=== PATIENT | male | born 1990 | race Caucasian/White ===

== ENCOUNTER 2016-11-10 22:54 | Inpatient (IN) | payer MEDICAID, OTHER ==
[~2016-11-10 22:54] MED LIST: fentaNYL 100 MCG/2 ML INJ IVP ONE
[2016-11-10] MEDS ORDERED: ONDANSETRON 4 MG/2 ML VIAL ONE (23:04)
[2016-11-10] MEDS ORDERED: PANTOPRAZOLE SODIUM 40 MG VIAL ONE (23:05)
[2016-11-10] MEDS ORDERED: CEFAZOLIN 2 GM/DEXTROSE/100 ML BAG IV ONE (23:05)
[2016-11-10] MEDS ORDERED: NS 1,000 ML IV ONE ×2 (23:06→23:31)
[2016-11-10 23:10] LABS: % IMMATURE GRANULYOCYTES 1.7 % (0.0-1.1); ABSOLUTE IMMATURE GRANULOCYTES 0.17 10^3/uL (0.00-0.10); ADD DIFF? NO; ADD MORPH? NO; ADD SCAN? NO; ATYPICAL LYMPHOCYTE FLAG 10 (0-99); FRAGMENT RBC FLAG 0 (0-99); HEMATOCRIT 47.4 % (40.0-51.0); HEMOGLOBIN 16.1 g/dL (13.7-17.5); LEFT SHIFT FLG 20 (0-99); LIPEMIA HEMOLYSIS FLAG 90 (0-99); MEAN CELL VOLUME 94.2 fL (81.5-99.8); MEAN PLATELET VOLUME 9.6 fL (8.7-11.7); PLATELET CLUMPS FLAG 30 (0-99); PLATELET COUNT 364 10^3/uL (150-400); RED BLOOD CELL COUNT 5.03 10^6/uL (4.40-6.38)
[2016-11-10] MEDS ORDERED: NS 100 ML BAG IV ONE (23:13)
[2016-11-10] MEDS ORDERED: PANTOPRAZOLE SODIUM 40 MG in NS 100 ML IV ONE (23:15)
[2016-11-10] MEDS ORDERED: ONDANSETRON 4 MG/2 ML VIAL IVP ONE (23:15)
[2016-11-10] MEDS ORDERED: ceFAZolin 2 GM in NS 100 ML IV ONE (23:15)
[2016-11-10 23:25] LABS: ANION GAP 11 mEq/L (8-16); CALCIUM 9.3 mg/dL (8.5-10.4); CARBON DIOXIDE 24 mEq/l (22-31); CHLORIDE 103 mEq/L (97-110); CREATININE 1.1 mg/dL (0.7-1.3); ETHANOL SERUM < 10 mg/dL (0-10); GLOMERULAR FILTRATION RATE > 60; GLUCOSE 105 mg/dL (70-100); POTASSIUM 4.4 mEq/L (3.5-5.2); SODIUM 138 mEq/L (134-144)
[2016-11-10] MEDS ORDERED: fentaNYL 100 MCG/2 ML INJ ONE (23:51)
[2016-11-10] MEDS ORDERED: fentaNYL 100 MCG/2 ML INJ IVP ONE (23:51)
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
[2016-11-10] MEDS ORDERED: LIDOCAINE 2% JELLY 20 ML (UROJECT) ONE (23:54)
[2016-11-11] MEDS ORDERED: HYDROCODONE/APAP 5/325 TAB PO PRN (00:05)
[2016-11-11] MEDS ORDERED: NALOXONE HCL 0.4 MG/ML INJ IVP PRN (00:05)
[2016-11-11] MEDS ORDERED: ONDANSETRON DISINTEGRATING 4 MG TAB PO PRN (00:05)
[2016-11-11] MEDS ORDERED: ACETAMINOPHEN 325 MG TAB PO PRN (00:05)
[2016-11-11 00:08] LABS: PROTIME(PATIENT) 13.1 SEC (12.0-15.0)
[2016-11-11 00:09] LABS: APTT 24.6 SEC (23.0-38.0)
[2016-11-11] MEDS ORDERED: fentaNYL 100 MCG/2 ML INJ IVP ONE ×2 (00:25→00:50)
[2016-11-11 00:41] LABS: COLOR YELLOW; LEUKOCYTE ESTERASE,URINE NEGATIVE (NEGATIVE); NITRITE,URINE NEGATIVE (NEGATIVE)
[2016-11-11 01:00] LABS: RBC,URINE 25-50 /hpf (0-3)
[2016-11-11] MEDS ORDERED: IOPAMIDOL (ISOVUE-300) 100 ML BTL IV ONE (01:13)
[2016-11-11] MEDS ORDERED: HYDROmorphONE/DILAUDID 1 MG/ML SYR ONE (01:18)
[2016-11-11] MEDS ORDERED: HYDROmorphONE/DILAUDID 1 MG/ML SYR IVP ONE (01:20)
[2016-11-11] MEDS ORDERED: fentaNYL 100 MCG/2 ML INJ ONE ×4 (02:06→06:30)
[2016-11-11] MEDS ORDERED: PROPOFOL/EMULSION 500 MG/50 ML BOTTLE IV ONE ×2 (02:06→04:21)
[2016-11-11] MEDS ORDERED: MIDAZOLAM 2 MG/2 ML VIAL ONE (02:33)
[2016-11-11] MEDS ORDERED: BACITRACIN 50,000 UNITS/10 ML SYR IRR ONE (02:58)
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
[2016-11-11] MEDS ORDERED: HYDROmorphONE/DILAUDID 2 MG/ML INJ ONE (04:01)
[2016-11-11] MEDS ORDERED: SILVER SULFADIAZINE 400 GM JAR TP ONE (04:53)
[2016-11-11] MEDS ORDERED: fentaNYL 100 MCG/2 ML INJ IVP PRN (05:52)
[2016-11-11] MEDS ORDERED: MEPERIDINE 25 MG/ML SYR ONE (06:09)
[2016-11-11 06:35] LABS: % IMMATURE GRANULYOCYTES 0.4 % (0.0-1.1); ABSOLUTE IMMATURE GRANULOCYTES 0.06 10^3/uL (0.00-0.10); ADD DIFF? NO; ADD MORPH? NO; ADD SCAN? NO; ATYPICAL LYMPHOCYTE FLAG 0 (0-99); FRAGMENT RBC FLAG 0 (0-99); HEMATOCRIT 41.9 % (40.0-51.0); LEFT SHIFT FLG 90 (0-99); LIPEMIA HEMOLYSIS FLAG 80 (0-99); MEAN CELL HEMOGLOBIN 31.8 pg (27.9-34.1); MEAN CELL HEMOGLOBIN CONCENTR. 33.4 g/dL (32.4-36.7); MEAN CELL VOLUME 95.2 fL (81.5-99.8); MEAN PLATELET VOLUME 9.5 fL (8.7-11.7); PLATELET CLUMPS FLAG 0 (0-99); PLATELET COUNT 263 10^3/uL (150-400)
[2016-11-11] MEDS: ACETAMINOPHEN 500 MG TAB PO SCH ×3 (06:58→23:07)
[2016-11-11] MEDS ORDERED: MEPERIDINE 25 MG/ML SYR IVP ONE (07:00)
--- NOTE | 2016-11-11 07:05 | POSTOPPROG ---
Post Op Note Date of Operation: 11/11/16 Surgeon: Martín Blandon Anesthesia: GET(General Endotracheal) Pre-op Diagnosis: Multiple wounds and abrasions Post-op Diagnosis: Multiple wounds and abrasions Indication: Multiple wounds and abrasions Procedure: Repair intermediate 60cm, repair simple 7.5cm Findings: Multiple wounds and abrasions Inf/Abcess present in the surg proc area at time of surgery?: No EBL: Minimal Complications: none Drains: Humberto Donahue Specimen(s): none
[2016-11-11] MEDS ORDERED: ceFAZolin 2 GM in NS 100 ML IV ONE ×2 (07:45→08:30)
[2016-11-11] MEDS: ALBUTEROL 200 PUFFS/18 GM MDI IH SCH ×4 (08:21→21:44)
[2016-11-11] MEDS ORDERED: ceFAZolin 2 GM/DEXTROSE 100 ML IV ONE (08:30)
[2016-11-11] MEDS: HYDROmorphONE/DILAUDID 6 MG/30 ML PCA IV PRN ×2 (08:46→13:26)
[2016-11-11] MEDS: ENOXAPARIN 40 MG/0.4 ML SYR SC SCH (09:09)
--- NOTE | 2016-11-11 09:16 | GOP ---
[f rep st] OPERATIVE REPORT DATE OF OPERATION: 11/11/2016 SURGEON: Martín Blandon MD ANESTHESIA: General endotracheal. PREOPERATIVE DIAGNOSIS: Multiple wounds and abrasions. POSTOPERATIVE DIAGNOSIS: Multiple wounds and abrasions. PROCEDURE PERFORMED: Repair intermediate 61 cm, repair simple 7.5 cm. FINDINGS: There is a simple laceration over his left eyebrow which is 2.5 cm in length and a simple laceration over his right forefoot which is 5 cm in length. The intermediate wounds include an 18 cm skin and subcutaneous flap which goes across the epigastrium and is down to the anterior rectus sheath. There is a 4 cm wound in his right groin. His right flank has an 8 cm wound. Both the flank and the abdomen were repaired over OXANA drains. There is a right knee 14 cm U shaped avulsion flap down to the fascia. There is below the knee 1 V shaped 6 cm laceration and 1 oblique area of tissue loss which is an extended ellipse and is 6 cm long. There were 2 wounds above the ankle on the medial aspect of the lower leg which are a total of 6 cm long. There are multiple abrasions. There is a 3% TBSI abrasion to the left shoulder and left upper arm. There is a 2% total body surface area abrasion to the left flank and a 0.5% abrasion over the left hip area. There is approximately a 3% area of abrasion to the right upper arm. There are small abrasions over the knuckles as well. DESCRIPTION OF PROCEDURE: The patient was placed on the operating table in supine position. Induction of adequate general endotracheal anesthesia. A surgical time-out was carried out and agreed to by all members of the operative team. He was approached in stages. First his abdomen was approached. He has received an additional dose of Ancef. The abdomen is carefully prepped with Betadine. Subcutaneous transverse epigastric laceration was approached first. It is physically debrided of all nonviable tissue. It is irrigated with a Sim[employer] ambulance driver paramedic. The dermis was now closed interrupted sutures of #3-0 Vicryl. Note is made of OXANA drain that has been left in the wound to prevent seroma formation. The skin was then further closed with marie. The right flank puncture wounds were now addressed. There were 2 holes. They were connected. The deep area of dissection is approximately 8 cm long. It was debrided with the Simpulse, and a 10 flat OXANA drain was left here too. The wound was closed with interrupted sutures of 3-0 Vicryl and marie. Attention was now directed to the knee. The U shaped flap at the level of the lateral aspect of the right knee was debrided and closed. 3-0 Vicryl and marie were used. There was a V shaped lesion on the lateral aspect of the proximal lower leg which was closed in this case with simple sutures of 5-0 nylon. There is a laceration just below that wound which was debrided, closed with interrupted sutures of 3-0 Vicryl and marie. There is a laceration across the forefoot which is closed with interrupted vertical mattress sutures of 5-0 nylon. The medial distal lower leg has 2 parallel lacerations. These are closed using subdermal 3-0 vicryl. The abrasions are treated with Silvadene to the abrasion (minimal abrasion). 4 x 4's and Kerlix are used. Webril is used. A small posterior splint is placed to stabilize the tibial plateau fracture. The abrasions on the left lower leg are treated with Silvadene. Abrasions on left hip and left flank are treated with Silvadene. Left upper arms abrasions are treated with Silvadene. Right upper arm wounds are debrided and treated with Silvadene. The left eyebrow laceration is closed with a combination of simple and vertical mattress sutures of 5-0 Prolene. Procedure was long and tedious and took approximately 3 hours. Patient was transferred back to the ICU in stable and satisfactory condition. /[id number]/MODL MTDD
[2016-11-11] MEDS: CETIRIZINE 10 MG TAB PO SCH (10:33)
[2016-11-11] MEDS: FLUTICASONE/SALMETER 100/50MCG DISKUS IH SCH ×2 (11:31→21:47)
[2016-11-11] MEDS: NS 1,000 ML IV SCH (15:01)
[2016-11-11] MEDS ORDERED: KETOROLAC 30 MG/1 ML SDV IVP ONE (15:38)
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
[2016-11-11] MEDS: DIAZEPAM 5 MG TAB PO PRN (17:46)
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
[2016-11-11] MEDS ORDERED: LIDOCAINE 1% 5 ML SDV ID ONE (20:15)
[2016-11-11] MEDS: Fluticasone/Salmeterol [Advair Hfa 115-21 Mcg Inhaler] IH SCH (21:44)
--- NOTE | 2016-11-11 22:03 | SOAPPROG ---
SOAP Progress Note Assessment/Plan: Assessment:pt doing well. pain adeq controlled. reassessed left eye - lateral canthus superficial abrasion lower fold once further cleaned. no need for further intervention. Plan: 11/11/16 22:02 Objective: Vital Signs Temp Pulse Resp BP Pulse Ox 37.3 C 74 16 131/60 H 99 11/11/16 16:02 11/11/16 16:02 11/11/16 16:02 11/11/16 16:02 11/11/16 16:02 11/10/16 11/11/16 11/12/16 05:59 05:59 05:59 Intake Total 911 Output Total 1100 Balance -189 PT 13.1 SEC (12.0-15.0) 11/10/16 23:00 INR 1.00 (0.83-1.16) 11/10/16 23:00 ICD10 Worksheet Patient Problems: Problems Problem Status Onset Facial contusion Acute Fracture of iliac wing Acute Laceration Acute Liver hematoma Acute Tibial plateau fracture Acute
[2016-11-11] MEDS: MIRTAZAPINE 30 MG TAB PO SCH (23:08)
[2016-11-11] MEDS ORDERED: LORazepam 2 MG/ML INJ IVP ONE (23:30)
[2016-11-12] MEDS: NS 1,000 ML IV SCH ×2 (01:17→21:35)
[2016-11-12] MEDS: HYDROmorphONE/DILAUDID 6 MG/30 ML PCA IV PRN ×2 (01:20→12:42)
[2016-11-12] MEDS: ALBUTEROL 200 PUFFS/18 GM MDI IH SCH ×4 (05:52→22:14)
[2016-11-12] MEDS: ACETAMINOPHEN 500 MG TAB PO SCH ×3 (06:05→21:35)
[2016-11-12] MEDS: ONDANSETRON 4 MG/2 ML VIAL IVP PRN ×2 (07:21→16:13)
[2016-11-12] MEDS: CETIRIZINE 10 MG TAB PO SCH (09:50)
[2016-11-12] MEDS: MIRTAZAPINE 30 MG TAB PO SCH (09:50)
[2016-11-12] MEDS: DIAZEPAM 5 MG TAB PO PRN ×3 (09:50→21:41)
[2016-11-12] MEDS: ENOXAPARIN 40 MG/0.4 ML SYR SC SCH (09:50)
[2016-11-12] MEDS: Fluticasone/Salmeterol [Advair Hfa 115-21 Mcg Inhaler] IH SCH (09:52)
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
[2016-11-12] MEDS: LORazepam 2 MG/ML INJ IVP PRN (16:38)
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
[2016-11-12] MEDS: FLUTICASONE/SALMETER 250/50MCG DISKUS IH SCH (23:46)
[2016-11-13] MEDS: HYDROmorphONE/DILAUDID 6 MG/30 ML PCA IV PRN ×2 (00:41→14:09)
[2016-11-13] MEDS: DIAZEPAM 5 MG TAB PO PRN ×3 (04:52→19:51)
[2016-11-13] MEDS: NS 1,000 ML IV SCH (04:56)
[2016-11-13] MEDS: ACETAMINOPHEN 500 MG TAB PO SCH ×3 (04:56→22:57)
[2016-11-13] MEDS: KETOROLAC 15 MG/1 ML SDV IVP PRN ×3 (05:07→19:49)
[2016-11-13] MEDS: ALBUTEROL 200 PUFFS/18 GM MDI IH SCH ×4 (05:46→23:22)
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
[2016-11-13] MEDS ORDERED: LACTULOSE 20 GM/30 ML UDCUP PO PRN (08:11)
[2016-11-13] MEDS ORDERED: BISACODYL 10 MG SUPP PR PRN (08:11)
[2016-11-13] MEDS: SENNOSIDES/DOCUSATE SODIUM TAB PO SCH ×2 (08:29→19:50)
[2016-11-13] MEDS: CETIRIZINE 10 MG TAB PO SCH (08:29)
[2016-11-13] MEDS: POLYETHYLENE GLYCOL 3350 17 GM PKT PO PRN (08:30)
[2016-11-13] MEDS: ENOXAPARIN 40 MG/0.4 ML SYR SC SCH (08:30)
[2016-11-13] MEDS: FLUTICASONE/SALMETER 250/50MCG DISKUS IH SCH ×2 (09:32→23:22)
[2016-11-13 09:38] LABS: ALANINE AMINOTRANSFERASE 70 IU/L (21-72); ALBUMIN 2.7 g/dL (3.5-5.0); ALKALINE PHOSPHATASE 40 IU/L (38-126); ANION GAP 3 mEq/L (8-16); ASPARTATE AMINOTRANSFERASE 88 IU/L (17-59); BILIRUBIN,TOTAL 0.5 mg/dL (0.1-1.4); CARBON DIOXIDE 29 mEq/l (22-31); CHLORIDE 106 mEq/L (97-110); CREATININE 0.7 mg/dL (0.7-1.3); GLOMERULAR FILTRATION RATE > 60; GLUCOSE 91 mg/dL (70-100); POTASSIUM 3.9 mEq/L (3.5-5.2); SODIUM 138 mEq/L (134-144); TOTAL PROTEIN 4.8 g/dL (6.3-8.2)
[2016-11-13 10:00] LABS: HEMATOCRIT 21.6 % (40.0-51.0); MEAN CELL HEMOGLOBIN 32.4 pg (27.9-34.1); MEAN CELL HEMOGLOBIN CONCENTR. 33.8 g/dL (32.4-36.7); RED BLOOD CELL COUNT 2.25 10^6/uL (4.40-6.38); RED CELL DISTRIBUTION WIDTH 13.2 % (11.5-15.2)
[2016-11-13 10:06] LABS: HEMOGLOBIN 7.3 g/dL (13.7-17.5)
[2016-11-13 10:36] LABS: HEMATOCRIT 21.6 % (40.0-51.0); HEMOGLOBIN 7.3 g/dL (13.7-17.5); MEAN CELL HEMOGLOBIN 31.7 pg (27.9-34.1); MEAN CELL HEMOGLOBIN CONCENTR. 33.8 g/dL (32.4-36.7); MEAN CELL VOLUME 93.9 fL (81.5-99.8); RED BLOOD CELL COUNT 2.3 10^6/uL (4.40-6.38); RED CELL DISTRIBUTION WIDTH 13.2 % (11.5-15.2)
[2016-11-13] MEDS: HYDROmorphONE/DILAUDID 4 MG TAB PO PRN ×5 (10:41→19:50)
[2016-11-13] MEDS: ONDANSETRON 4 MG/2 ML VIAL IVP PRN (12:20)
[2016-11-13] MEDS ORDERED: IOPAMIDOL (ISOVUE-300) 100 ML BTL ONE (14:37)
--- NOTE | 2016-11-13 15:13 | WOCRNPDOC ---
FILIBERTO Advanced Assessment Note - Skin Integrity Problem, Advanced Assess Left Upper Arm Abrasion Dressing Type: Abdominal Pads, Kerlix, Xeroform Dressing Description: Clean/Dry, Intact Exudate Amount: Scant Exudate Characteristic(s): Serous Integumentary Issue Intervention: Dressing Changed Amarilys Wound Tissue: Erythema Wound Bed Color: [place] Wound Bed Constitution: Smooth Tissue Site Measurement - Head-to-Toe Length X Width X Depth (cm): 23.5x5.5x0.1 Skin Integrity Problem Comment: Large partial thickness abrasion. Cleaned with ns and gauze. Silvasorb to wound bed. Covered with triact contact layer, then mepilex, and secured with kerlix. David GALINDO assisted with care and Kassandra Vázquez in room as well. No concerns, no sign of infection, no debris in wound. Wound care will round again on Sunday 11/19. Please alert wound care if there are concerns prior to that date. Left Lateral Chest Abrasion Dressing Type: Gauze, Tegaderm Film Dressing Description: Intact, Saturated Exudate Amount: Scant Exudate Characteristic(s): Serous Integumentary Issue Intervention: Dressing Changed Wound Bed Constitution: Smooth Tissue Site Measurement - Head-to-Toe Length X Width X Depth (cm): 12x8x0.1 Skin Integrity Problem Comment: Partial thickness abrasion. Cleaned with ns and gauze. Silvasorb to wound bed. Covered with Allevyn Life. David GALINDO assisted with care. No concerns, no sign of infection, no debris in wound. Left Greater Trochanter Abrasion Dressing Type: Gauze, Tegaderm Film Dressing Description: Clean/Dry, Intact Exudate Amount: Scant Exudate Characteristic(s): Serous Integumentary Issue Intervention: Dressing Changed Wound Bed Constitution: Smooth Tissue Site Measurement - Head-to-Toe Length X Width X Depth (cm): 2.5x2.5x0.2 Skin Integrity Problem Comment: Mixed partial/full thickness abrasion. Small piece of loose tissue manually removed. Cleaned with ns and gauze. Silvasorb to wound bed. Covered with Allevyn life. David GALINDO assisted with care. No concerns, no sign of infection, no debris in wound. Left Lateral Knee Abrasion Dressing Type: Abdominal Pads, Gauze, Kerlix Dressing Description: Clean/Dry, Intact Integumentary Issue Intervention: Dressing Changed Amarilys Wound Tissue: Erythema (minimal) Wound Bed Color: [place] Site Measurement - Head-to-Toe Length X Width X Depth (cm): 3.5x3.7x0.2 Skin Integrity Problem Comment: 10% full thickness with the remainder being a partial thickness abrasion. Cleaned with ns and gauze. Honey hydrocolloid to cover wound reinforced with medipore tape. David GALINDO assisted with care. No concerns, no sign of infection, no debris in wound. Left Lateral Ankle Abrasion Dressing Type: Abdominal Pads, Gauze, Kerlix Dressing Description: Clean/Dry, Intact Exudate Characteristic(s): Serosanguinous Integumentary Issue Intervention: Dressing Changed Wound Bed Constitution: Smooth Tissue Site Measurement - Head-to-Toe Length X Width X Depth (cm): 2x1.5x0.2 (x 2 wounds) Skin Integrity Problem Comment: 30% full thickness with the remainder being a partial thickness abrasion. Cleaned with ns and gauze. Honey hydrocolloid to cover wound reinforced with medipore tape. David GALIDNO assisted with care. No concerns, no sign of infection, no debris in wound. Left Lateral Dorsal Foot Abrasion Dressing Type: Abdominal Pads, Gauze, Kerlix Integumentary Issue Intervention: Dressing Changed Site Measurement - Head-to-Toe Length X Width X Depth (cm): 1.5x1x0.2 Skin Integrity Problem Comment: 10% full thickness abrasion. Cleaned with ns and gauze. Honey hydrocolloid to cover wound reinforced with medipore tape. David GALINDO assisted with care. No concerns, no sign of infection, no debris in wound.
--- NOTE | 2016-11-13 16:03 | SOAPPROG ---
Downtime Inpatient MD Late Entry SOAP Note: Repeat CT shows unchanged small subcapsular liver hematoma and no free fluid in the abd/pelvis. The bladder is massively distended. The soft tissues around the right ischial fracture are more prominant secondary to swelling. Blood loss likely occured from the abd/flank wounds and right ischial fracture. I will request a bladder scan/cath and monitor H/H The patient's family has requested transfer to [facility]. I called Dr. Parag Alas and he provisionally accepted the patient. The briefcase sewer contacted [employer] [facility] and they cannot accept transfer in patient's covered by Medicaid. Ja Zuniga MD, FACS
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
[2016-11-13] MEDS: MIRTAZAPINE 15 MG TAB PO SCH (19:51)
[2016-11-14] MEDS: KETOROLAC 15 MG/1 ML SDV IVP PRN ×2 (02:34→11:37)
[2016-11-14] MEDS: HYDROmorphONE/DILAUDID 4 MG TAB PO PRN ×6 (02:35→20:34)
[2016-11-14] MEDS: DIAZEPAM 5 MG TAB PO PRN ×3 (02:35→19:48)
[2016-11-14] MEDS: LORazepam 2 MG/ML INJ IVP PRN (02:50)
[2016-11-14] MEDS: ALBUTEROL 200 PUFFS/18 GM MDI IH SCH ×4 (05:18→21:32)
[2016-11-14] MEDS: ACETAMINOPHEN 500 MG TAB PO SCH ×3 (05:42→22:31)
[2016-11-14] MEDS: SENNOSIDES/DOCUSATE SODIUM TAB PO SCH ×2 (08:12→20:34)
[2016-11-14] MEDS: CETIRIZINE 10 MG TAB PO SCH (08:12)
[2016-11-14] MEDS: ENOXAPARIN 40 MG/0.4 ML SYR SC SCH (08:13)
[2016-11-14 08:17] LABS: % IMMATURE GRANULYOCYTES 0.5 % (0.0-1.1); ABSOLUTE IMMATURE GRANULOCYTES 0.03 10^3/uL (0.00-0.10); ADD DIFF? NO; ADD MORPH? NO; ADD SCAN? NO; ATYPICAL LYMPHOCYTE FLAG 0 (0-99); FRAGMENT RBC FLAG 0 (0-99); HEMATOCRIT 23.6 % (40.0-51.0); HEMOGLOBIN 7.7 g/dL (13.7-17.5); LEFT SHIFT FLG 10 (0-99); LIPEMIA HEMOLYSIS FLAG 80 (0-99); MEAN CELL HEMOGLOBIN 31.4 pg (27.9-34.1); MEAN CELL HEMOGLOBIN CONCENTR. 32.6 g/dL (32.4-36.7); MEAN CELL VOLUME 96.3 fL (81.5-99.8); MEAN PLATELET VOLUME 9.4 fL (8.7-11.7); PLATELET CLUMPS FLAG 0 (0-99); PLATELET COUNT 181 10^3/uL (150-400); RED BLOOD CELL COUNT 2.45 10^6/uL (4.40-6.38); RED CELL DISTRIBUTION WIDTH 13.1 % (11.5-15.2)
[2016-11-14] MEDS: FLUTICASONE/SALMETER 250/50MCG DISKUS IH SCH ×2 (08:40→21:32)
[2016-11-14] MEDS: POLYETHYLENE GLYCOL 3350 17 GM PKT PO PRN (12:56)
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
[2016-11-14] MEDS: MIRTAZAPINE 15 MG TAB PO SCH (20:35)
[2016-11-14] MEDS: MAGNESIUM HYDROXIDE 30 ML UDCUP PO PRN (20:38)
[2016-11-15] MEDS: HYDROmorphONE/DILAUDID 4 MG TAB PO PRN ×3 (00:49→05:44)
[2016-11-15] MEDS: DIAZEPAM 5 MG TAB PO PRN (01:33)
[2016-11-15] MEDS: ALBUTEROL 200 PUFFS/18 GM MDI IH SCH ×4 (05:39→22:50)
[2016-11-15] MEDS: ACETAMINOPHEN 500 MG TAB PO SCH ×3 (05:44→21:44)
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
[2016-11-15] MEDS: Fluticasone/Salmeterol [Advair Hfa 115-21 Mcg Inhaler] IH SCH (08:07)
[2016-11-15] MEDS: FLUTICASONE/SALMETER 250/50MCG DISKUS IH SCH ×2 (08:13→22:50)
[2016-11-15] MEDS: MAGNESIUM HYDROXIDE 30 ML UDCUP PO PRN (08:16)
[2016-11-15] MEDS: CETIRIZINE 10 MG TAB PO SCH (08:55)
[2016-11-15] MEDS: SENNOSIDES/DOCUSATE SODIUM TAB PO SCH ×2 (08:55→20:00)
[2016-11-15] MEDS: ENOXAPARIN 40 MG/0.4 ML SYR SC SCH (08:56)
[2016-11-15] MEDS ORDERED: HYDROmorphONE/DILAUDID 2 MG/ML INJ ONE (09:54)
[2016-11-15] MEDS ORDERED: PROPOFOL 200 MG/20 ML VIAL ONE (09:54)
[2016-11-15] MEDS ORDERED: KETAMINE 100 MG/10 ML SYR IVP ONE (09:56)
[2016-11-15] MEDS ORDERED: ALBUMIN 5% 250 ML BOTTLE IV ONE ×2 (10:05→10:10)
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
[2016-11-15] MEDS ORDERED: SUCCINYLCHOLINE CHLORIDE*ANESTHESIA ONLY*200 MG/10 ML SYR IVP ONE (10:49)
[2016-11-15] MEDS ORDERED: DEXAMETHASONE 4 MG/ML VIAL ONE (10:49)
--- NOTE | 2016-11-15 11:18 | POSTOPPROG ---
Post Op Note Date of Operation: 11/15/16 Surgeon: Rolando Morocho Tire Sorter: none Anesthesiologist: Agudelo Anesthesia: GET(General Endotracheal) Pre-op Diagnosis: hemorrhage abdominal wall Post-op Diagnosis: same Procedure: wound exploration with liagtion of bleeding vessel Inf/Abcess present in the surg proc area at time of surgery?: No Drains: Humberto Donahue Specimen(s): none
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
[2016-11-15] MEDS: IBUPROFEN 600 MG TAB PO SCH ×3 (12:56→20:00)
[2016-11-15] MEDS: oxyCODONE IR 5 MG TAB PO PRN ×4 (14:57→23:48)
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
[2016-11-15] MEDS: MIRTAZAPINE 15 MG TAB PO SCH (20:00)
[2016-11-15] MEDS: POLYETHYLENE GLYCOL 3350 17 GM PKT PO PRN (20:01)
[2016-11-16] MEDS: oxyCODONE IR 5 MG TAB PO PRN ×5 (04:23→16:16)
[2016-11-16] MEDS: ACETAMINOPHEN 500 MG TAB PO SCH ×3 (06:10→20:36)
[2016-11-16] MEDS: IBUPROFEN 600 MG TAB PO SCH ×4 (06:11→20:38)
[2016-11-16] MEDS: DIAZEPAM 5 MG TAB PO PRN ×2 (06:13→12:30)
[2016-11-16] MEDS: ALBUTEROL 200 PUFFS/18 GM MDI IH SCH ×2 (06:18→10:11)
[2016-11-16 08:10] LABS: HEMOGLOBIN 7.7 g/dL (13.7-17.5); MEAN CELL VOLUME 91.3 fL (81.5-99.8); RED BLOOD CELL COUNT 2.41 10^6/uL (4.40-6.38); RED CELL DISTRIBUTION WIDTH 13.2 % (11.5-15.2)
[2016-11-16] MEDS: CETIRIZINE 10 MG TAB PO SCH (08:42)
[2016-11-16] MEDS: SENNOSIDES/DOCUSATE SODIUM TAB PO SCH ×2 (08:43→20:37)
[2016-11-16] MEDS: ENOXAPARIN 40 MG/0.4 ML SYR SC SCH (08:44)
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
[2016-11-16] MEDS: FLUTICASONE/SALMETER 250/50MCG DISKUS IH SCH (10:41)
[2016-11-16] MEDS: DULERA IH SCH ×2 (12:07→20:50)
[2016-11-16] MEDS: POLYETHYLENE GLYCOL 3350 17 GM PKT PO PRN (16:23)
[2016-11-16] MEDS: MIRTAZAPINE 15 MG TAB PO SCH (20:37)
[2016-11-17] MEDS: oxyCODONE IR 5 MG TAB PO PRN ×7 (01:45→21:07)
[2016-11-17] MEDS: DIAZEPAM 5 MG TAB PO PRN ×3 (02:39→17:21)
[2016-11-17] MEDS: ACETAMINOPHEN 500 MG TAB PO SCH ×3 (06:03→21:07)
[2016-11-17] MEDS: IBUPROFEN 600 MG TAB PO SCH ×4 (06:03→21:07)
[2016-11-17] MEDS: CETIRIZINE 10 MG TAB PO SCH (08:49)
[2016-11-17] MEDS: DULERA IH SCH ×2 (08:51→21:24)
[2016-11-17] MEDS: ENOXAPARIN 40 MG/0.4 ML SYR SC SCH (08:51)
[2016-11-17] MEDS: SENNOSIDES/DOCUSATE SODIUM TAB PO SCH ×2 (08:51→21:24)
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
[2016-11-17] MEDS: MIRTAZAPINE 15 MG TAB PO SCH (21:06)
[2016-11-18] MEDS: oxyCODONE IR 5 MG TAB PO PRN ×7 (01:07→20:46)
[2016-11-18] MEDS: DIAZEPAM 5 MG TAB PO PRN ×2 (02:07→20:11)
[2016-11-18] MEDS: IBUPROFEN 600 MG TAB PO SCH ×4 (04:52→20:45)
[2016-11-18] MEDS: ACETAMINOPHEN 500 MG TAB PO SCH ×3 (04:52→20:46)
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
[2016-11-18] MEDS: CETIRIZINE 10 MG TAB PO SCH (08:41)
[2016-11-18] MEDS: SENNOSIDES/DOCUSATE SODIUM TAB PO SCH ×2 (08:42→21:40)
[2016-11-18] MEDS: ENOXAPARIN 40 MG/0.4 ML SYR SC SCH (08:42)
--- NOTE | 2016-11-18 10:19 | WOCRNPDOC ---
WOCRN Advanced Assessment Note - Skin Integrity Problem, Advanced Assess Left Upper Arm Abrasion Dressing Type: Kerlix, Mepilex Dressing Description: Clean/Dry, Intact Exudate Amount: Scant Exudate Characteristic(s): Serosanguinous Integumentary Issue Intervention: Visualized Under Dressing Wound Bed Constitution: Smooth Tissue Skin Integrity Problem Comment: Wound healing well. Will update orders. No sign of infection. Per report from Christin SALAZAR there are no concerns regarding his wounds that wound care has been following. Left Lateral Knee Abrasion Dressing Type: Honey Sheet (HCS) Dressing Description: Clean/Dry, Intact Exudate Amount: Minimal Exudate Characteristic(s): Serosanguinous Integumentary Issue Intervention: Visualized Under Dressing Wound Bed Constitution: Granulation Tissue, Smooth Tissue Skin Integrity Problem Comment: Wound healing without concerns. Will update orders. Please reconsult prn. Left Lateral Ankle Abrasion Dressing Type: Allevyn Life, Honey Sheet (HCS) Dressing Description: Clean/Dry, Intact Exudate Amount: Scant Exudate Characteristic(s): Serosanguinous Integumentary Issue Intervention: Visualized Under Dressing Wound Bed Constitution: Granulation Tissue, Smooth Tissue Skin Integrity Problem Comment: Wound without any necrosis. Healing well. Edges showing signs of epithelization. Will update wound orders and will no longer need to follow. Please reconsult prn with concerns.
[2016-11-18] MEDS: DULERA IH SCH ×2 (10:50→20:38)
[2016-11-18] MEDS: ALBUTEROL 200 PUFFS/18 GM MDI IH PRN ×3 (10:51→20:38)
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
[2016-11-18] MEDS: MIRTAZAPINE 15 MG TAB PO SCH (20:45)
[2016-11-19] MEDS: oxyCODONE IR 5 MG TAB PO PRN ×5 (00:53→20:38)
[2016-11-19] MEDS: DIAZEPAM 5 MG TAB PO PRN ×3 (00:54→20:37)
[2016-11-19] MEDS: ACETAMINOPHEN 500 MG TAB PO SCH ×3 (04:49→20:37)
[2016-11-19] MEDS: IBUPROFEN 600 MG TAB PO SCH ×4 (04:49→21:24)
[2016-11-19] MEDS: CETIRIZINE 10 MG TAB PO SCH (08:47)
[2016-11-19] MEDS: ENOXAPARIN 40 MG/0.4 ML SYR SC SCH (08:47)
[2016-11-19] MEDS: DULERA IH SCH ×2 (08:48→22:06)
[2016-11-19] MEDS: SENNOSIDES/DOCUSATE SODIUM TAB PO SCH ×2 (08:48→20:36)
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
[2016-11-19] MEDS ORDERED: fentaNYL 100 MCG/2 ML INJ ONE ×3 (16:00→19:49)
[2016-11-19] MEDS ORDERED: BUPIVACAINE/EPI 0.5% 30 ML SDV ONE (16:27)
[2016-11-19] MEDS ORDERED: MIDAZOLAM 2 MG/2 ML VIAL ONE (16:36)
[2016-11-19] MEDS ORDERED: DEXMEDETOMIDINE HCL 200 MCG/2 ML VIAL IV ONE (16:37)
--- NOTE | 2016-11-19 16:38 | POSTOPPROG ---
Post Op Note Date of Operation: 11/19/16 Surgeon: Kevin Camejo Anesthesia: GET(General Endotracheal) Pre-op Diagnosis: R tib plateau fx Post-op Diagnosis: same Procedure: ORIF R tibial plateau fx Inf/Abcess present in the surg proc area at time of surgery?: No EBL: 50-100
[2016-11-19] MEDS ORDERED: LIDOCAINE 2% JELLY 5 ML TUBE ONE (16:40)
[2016-11-19] MEDS ORDERED: morphINE *ANESTHESIA ONLY* 10 MG/ML VIAL ONE ×2 (16:40→18:33)
[2016-11-19] MEDS ORDERED: PROPOFOL 200 MG/20 ML VIAL ONE (16:40)
[2016-11-19] MEDS ORDERED: morphINE PCA 30 MG/30 ML PCA IV PRN (16:40)
[2016-11-19] MEDS ORDERED: LIDOCAINE 2% 5 ML SDV ONE (16:41)
[2016-11-19] MEDS ORDERED: ONDANSETRON 4 MG/2 ML VIAL ONE (16:41)
[2016-11-19] MEDS ORDERED: DEXAMETHASONE 4 MG/ML VIAL ONE ×2 (16:41)
[2016-11-19] MEDS ORDERED: D5W 1/2 NS W/ 20 KCl/L 1,000 ML IV SCH (16:45)
[2016-11-19] MEDS ORDERED: KETAMINE 100 MG/10 ML SYR IVP ONE (16:47)
[2016-11-19] MEDS ORDERED: CALCIUM CHLORIDE 1 GM/10 ML INJ ONE (17:09)
[2016-11-19] MEDS ORDERED: THROMBIN (BOVINE) 5,000 UNIT VIAL TP ONE (17:09)
[2016-11-19] MEDS ORDERED: ceFAZolin 1 GM VIAL ONE ×2 (17:18)
[2016-11-19] MEDS: ceFAZolin 2 GM/DEXTROSE 100 ML IV SCH (21:13)
[2016-11-19] MEDS: MIRTAZAPINE 15 MG TAB PO SCH (21:24)
[2016-11-19] MEDS: HYDROmorphONE/DILAUDID 2 MG/ML INJ IVP PRN ×2 (21:51→23:53)
[2016-11-20] MEDS: oxyCODONE IR 5 MG TAB PO PRN ×6 (00:51→19:55)
[2016-11-20] MEDS: METHOCARBAMOL 750 MG TAB PO PRN ×2 (02:50→10:01)
[2016-11-20] MEDS: ceFAZolin 2 GM/DEXTROSE 100 ML IV SCH (05:22)
[2016-11-20] MEDS: ACETAMINOPHEN 500 MG TAB PO SCH ×3 (05:24→21:49)
[2016-11-20] MEDS: IBUPROFEN 600 MG TAB PO SCH ×4 (05:25→19:55)
[2016-11-20] MEDS: DIAZEPAM 5 MG TAB PO PRN ×2 (05:25→19:55)
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
[2016-11-20] MEDS ORDERED: chlorproMAZINE HCL 50 MG in NS 50 ML IV ONE (09:57)
[2016-11-20] MEDS: CETIRIZINE 10 MG TAB PO SCH (09:59)
[2016-11-20] MEDS: ENOXAPARIN 40 MG/0.4 ML SYR SC SCH (10:00)
[2016-11-20] MEDS: POLYETHYLENE GLYCOL 3350 17 GM PKT PO PRN ×2 (10:00→19:54)
[2016-11-20] MEDS: DULERA IH SCH ×2 (10:00→22:07)
[2016-11-20] MEDS: SENNOSIDES/DOCUSATE SODIUM TAB PO SCH ×2 (10:00→19:55)
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
[2016-11-20] MEDS: MIRTAZAPINE 15 MG TAB PO SCH (19:55)
[2016-11-21] MEDS: oxyCODONE IR 5 MG TAB PO PRN ×5 (00:19→18:25)
[2016-11-21] MEDS: METHOCARBAMOL 750 MG TAB PO PRN ×4 (00:19→22:19)
[2016-11-21] MEDS: ACETAMINOPHEN 500 MG TAB PO SCH ×3 (05:03→22:19)
[2016-11-21] MEDS: IBUPROFEN 600 MG TAB PO SCH ×4 (05:03→22:18)
[2016-11-21] MEDS: DIAZEPAM 5 MG TAB PO PRN ×3 (05:04→18:25)
[2016-11-21] MEDS: DULERA IH SCH ×2 (08:54→22:27)
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
[2016-11-21] MEDS: SENNOSIDES/DOCUSATE SODIUM TAB PO SCH ×2 (09:07→22:18)
[2016-11-21] MEDS: CETIRIZINE 10 MG TAB PO SCH (09:07)
[2016-11-21] MEDS: ENOXAPARIN 40 MG/0.4 ML SYR SC SCH (09:08)
--- NOTE | 2016-11-21 10:03 | GOP ---
[f rep st] OPERATIVE REPORT DATE OF OPERATION: 11/19/2016 SURGEON: Kevin Camejo MD ANESTHESIA: General. PREOPERATIVE DIAGNOSIS: 1. Right tibial plateau fracture (split depressed lateral plateau). 2. Traumatic wound, right lateral knee. POSTOPERATIVE DIAGNOSIS: 1. Right tibial plateau fracture (split depressed lateral plateau). 2. Traumatic wound, right lateral knee. PROCEDURE PERFORMED: 1. Open reduction, internal fixation, right tibial plateau fracture. 2. Application of unilateral external fixator. 3. Intraoperative use of fluoroscopy. 4. Irrigation and debridement, right lateral knee, including skin, subcutaneous tissue, and muscle. FINDINGS: ESTIMATED BLOOD LOSS: Minimal.safe DESCRIPTION OF PROCEDURE: Patient brought in the operating room after IV antibiotics were administered. He was placed in a supine position, where general anesthetic was administered. A tourniquet was placed on the right thigh , bump underneath the right hip and shoulder, and the right lower extremity was prepped and draped in standard sterile fashion. After Manny wrap exsanguination, tourniquet was inflated to 250. His lateral skin wound had its marie removed. This was extended both distally and proximally trying to keep the extension in line with his open traumatic wounds, to allow for safe vascular supplied with skin flaps. There did not appear to be communication of the open wound with the deep fascia layers. Utilizing 3 L of sterile saline irrigant and cystoscopy tubing, the wound was copiously irrigated. There was no evidence of infection. The anterior compartment of fascia was released off the lateral aspect of the tibial tubercle. The incision was extended proximally, incising through the distal aspect of the vastus lateralis fascia. The anterior compartment musculature was reflected in an anterior-posterior direction off the tibia. Just inferior to the lateral malleolus, a transverse incision was made, elevating the lateral malleolus to allow for adequate intra- articular exposure. To aid in the articular reduction, distractor was applied. After making small incisions along the lateral aspect of the distal femur and tibia, and dissecting down to the bone with a fine-tipped hemostat, 3.5 mm drill holes were placed using a protective drill sleeve, and 5.0 mm Schanz pins were placed in a dzbfrbw-gu-cxtzdw direction. [place] distractor was applied , which enabled adequate distraction of the joint line for visualization and reduction. There was noted to be a major depressed lateral segment. Visualization of this revealed some scuffing of the articular surface. A couple smaller articular segments, which had some partial attachment to the main segment, were additionally identified. After freeing up the segment with a chisel and elevators, the major segment was elevated back flush with the articular surface. The lateral wall was flush with the articular surface. An osseous defect was seen below this. The defect was filled with cancellous allograft, which had been impregnated with PRP fabricated from the patient's blood, which had been drawn prior to the surgery. The lateral wall was then reduced, and multiple provisional pinning was performed with Melani wires. Additional jcgffxbi-bx-kphzhjxsv Melani wire was placed, stabilizing a split posterior lateral fragment. Direct visualization, palpation with a [place] elevator, and fluoroscopic visualization was utilized to confirm favorable reduction. Definitive fixation was then performed. A lateral 3.5 mm tibial plateau plate (Synthes) was placed along the lateral aspect of proximal tibia. Just distal to the fracture plane, a 3.5 mm bicortical screw was placed through the plate in hawdsru-yh-lqkmih direction. Proximally, a combination of 3.5 mm cortical screws placed in lag fashion, as well as cortical locking screws, were placed through the plate in the lateral and medial direction. An additional 3.5 mm bicortical screw was placed in the most distal hole in the plate, angling this in a proximal lateral to distal medial direction to "extend the fixation" and enable less extension of the skin incision. Under fluoroscopic guidance, fixation of the posterior split fragment was performed. The anterior tubercle fragment was comminuted, however, which prevented isolated screw fixation. A 1/3 tubular plate was then cut to a 3-hole size, malleted flat, and bent, to fit from the dyeqcrv-jy-fnxdkuva aspect of the tubercle. One of the holes was placed underneath the major lateral plate, and this was secured through both plates with a 3.5 mm cortical screw. Through the anterior screw hole, under fluoroscopic guidance, a 3.5 mm cortical screw was placed in lag fashion in epcyfyza-ed-xqwypzbjv direction, gaining favorable purchase in the split posterior segment. Fluoroscopic views confirmed favorable reduction and hardware placement. Attention was directed towards closure. The deep fascial layer was closed with 0 Vicryl suture in interrupted fashion after tacking the lateral meniscus back into place with 2-0 Vicryl suture. The subcutaneous tissue was closed with 3-0 Vicryl suture in interrupted fashion. The skin was closed with 3-0 nylon interrupted vertical mattress sutures. Prior to closure, the tourniquet had been deflated with no untoward bleeding seen. The wounds were dressed with sterile Adaptic, 4 x 4, and Kerlix. The patient was taken to the recovery room , extubated, in stable condition postoperatively. All sponge, needle, and instrument counts were reported as being correct. DRAINS: None. COMPLICATIONS: None. PLAN: The patient will be readmitted for medical management and pain control. He would be [id number] on his operative extremity. /[id number]/MODL MTDD
[2016-11-21 10:32] LABS: % IMMATURE GRANULYOCYTES 1.6 % (0.0-1.1); ABSOLUTE IMMATURE GRANULOCYTES 0.12 10^3/uL (0.00-0.10); ADD DIFF? NO; ADD MORPH? NO; ADD SCAN? NO; ATYPICAL LYMPHOCYTE FLAG 30 (0-99); FRAGMENT RBC FLAG 0 (0-99); HEMATOCRIT 26.5 % (40.0-51.0); HEMOGLOBIN 8.8 g/dL (13.7-17.5); LEFT SHIFT FLG 30 (0-99); LIPEMIA HEMOLYSIS FLAG 80 (0-99); MEAN CELL HEMOGLOBIN 32.6 pg (27.9-34.1); MEAN CELL HEMOGLOBIN CONCENTR. 33.2 g/dL (32.4-36.7); MEAN CELL VOLUME 98.1 fL (81.5-99.8); MEAN PLATELET VOLUME 8.6 fL (8.7-11.7); PLATELET CLUMPS FLAG 0 (0-99); PLATELET COUNT 448 10^3/uL (150-400); RED CELL DISTRIBUTION WIDTH 16.3 % (11.5-15.2)
[2016-11-21 10:39] LABS: ANION GAP 8 mEq/L (8-16); CALCIUM 9.5 mg/dL (8.5-10.4); CARBON DIOXIDE 28 mEq/l (22-31); CHLORIDE 102 mEq/L (97-110); CREATININE 0.7 mg/dL (0.7-1.3); GLOMERULAR FILTRATION RATE > 60; GLUCOSE 86 mg/dL (70-100); POTASSIUM 3.9 mEq/L (3.5-5.2); SODIUM 138 mEq/L (134-144)
[2016-11-21] MEDS: POLYETHYLENE GLYCOL 3350 17 GM PKT PO PRN (18:33)
[2016-11-21] MEDS: MIRTAZAPINE 15 MG TAB PO SCH (22:18)
[2016-11-21] MEDS: HYDROmorphONE/DILAUDID 2 MG/ML INJ IVP PRN (22:22)
[2016-11-22] MEDS: DIAZEPAM 5 MG TAB PO PRN (00:32)
[2016-11-22] MEDS: oxyCODONE IR 5 MG TAB PO PRN ×3 (00:32→14:13)
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
[2016-11-22] MEDS: IBUPROFEN 600 MG TAB PO SCH ×3 (06:10→15:38)
[2016-11-22] MEDS: ACETAMINOPHEN 500 MG TAB PO SCH ×2 (06:10→14:13)
[2016-11-22] MEDS: METHOCARBAMOL 750 MG TAB PO PRN (06:10)
[2016-11-22 09:16] VITALS: RESP 14; TEMP 98.6; O2SAT 90
[2016-11-22] MEDS: SENNOSIDES/DOCUSATE SODIUM TAB PO SCH (10:06)
[2016-11-22] MEDS: CETIRIZINE 10 MG TAB PO SCH (10:06)
[2016-11-22] MEDS: DULERA IH SCH (10:07)
[2016-11-22] MEDS: ENOXAPARIN 40 MG/0.4 ML SYR SC SCH (10:07)
--- NOTE | 2016-11-22 10:13 | PDIAF ---
- Diagnosis Diagnosis: polytrauma Code Status: Full Code - Medication Management Discharge Medications: Medications to Continue on Transfer Cetirizine [ZyrTEC 10 mg (*)] 10 mg PO DAILY 11/10/16 [Last Taken 11/10/16] Fluticasone/Salmeterol [Advair Hfa 115-21 Mcg Inhaler] 2 puffs IH BID 11/11/16 [ Last Taken 11/10/16] Herbals/Supplements -Info Only 1 ea PO DAILY 11/11/16 [Last Taken Unknown] Mirtazapine [Remeron] 15 mg PO HS 11/11/16 [Last Taken 11/10/16] Acetaminophen [Tylenol ES 500 mg (*)] 1,000 mg PO Q8 #0 tab 11/22/16 [Last Taken Unknown] Albuterol [Ventolin Hfa Inhaler] 2 puffs IH Q4 PRN #0 mdi 11/22/16 [Last Taken Unknown] Diazepam [Valium 5 MG (*)] 2.5 - 5 mg PO Q6 PRN #0 tab 11/22/16 [Last Taken Unknown] Ibuprofen [Motrin (*)] 600 mg PO QID #0 tab 11/22/16 [Last Taken Unknown] Methocarbamol [Robaxin 750 mg (*)] 750 mg PO Q6 PRN #0 tab 11/22/16 [Last Taken Unknown] oxyCODONE CR [Oxycontin] 10 mg PO TID #0 tab 11/22/16 [Last Taken Unknown] oxyCODONE IR [Oxycodone Ir (*)] 10 mg PO Q4HRS PRN #0 tab 11/22/16 [Last Taken Unknown] Discharge Medications: Refer to the Discharge Home Medication list for PRN reason. - Orders Services needed: Home Care, Registered Nurse, Physical Therapy, Occupational Therapy Home Care Face to Face: I certify that this patient was under my care and that I had the required ausf-vz-odzd encounter meeting the encounter requirements on the discharge day. My findings support the fact that the patient is homebound as defined in CMS Chapter 7 Medicare Benefits Manual 30.1.1, The condition of the patient is such that there exists a normal inability to leave home and consequently, leaving home would require a considerable and taxing effort. Diet Recommendation: no restrictions on diet Diet Texture: Regular Texture Diet Wound Care Instructions: change dressing every 1-2 days, ok to shower over all wounds/sutures/marie then cover with nonstick gauze or vaseline gauze. Apply small amount of antibiotic gel to right arm laceration, maybe small amount ot left lateral ankle for couple days. Sutures/[place] Site: mraie out next week at Dr Cunha office, patient to call for an appointment Activity/Weight Bearing Restrictions: see ortho recommendations - Follow Up Care Current Providers and Referrals: NONE *PRIMARY CARE P,. [Unknown] - As per Instructions
[2016-11-22 12:10] VITALS: BP 102/66; PULSE 81
== END 2016-11-22 17:18 | disposition home or self-care (01) | DRG 959 ==
LOC: EDUNIT# → F2N 11-11 06:15 → OBSVTOIN 11-11 16:25 → F3N 11-12 20:06
PROVIDERS: ADMIT Surgery; ATTEND Surgery
PROC: 0HQKXZZ Repair Right Lower Leg Skin, External Approach (ICD-10-PCS; principal; 2016-11-11 04:00)
PROC: 0JQN0ZZ Repair Right Lower Leg Subcutaneous Tissue and Fascia, Open Approach (ICD-10-PCS; principal; 2016-11-11 04:00)
PROC: 0J9N0ZZ Drainage of Right Lower Leg Subcutaneous Tissue and Fascia, Open Approach (ICD-10-PCS; principal; 2016-11-11 04:00)
PROC: 0J9800Z Drainage of Abdomen Subcutaneous Tissue and Fascia with Drainage Device, Open Approach (ICD-10-PCS; principal; 2016-11-11 04:00)
PROC: 0HQ1XZZ Repair Face Skin, External Approach (ICD-10-PCS; principal; 2016-11-11 04:00)
PROC: 0HQMXZZ Repair Right Foot Skin, External Approach (ICD-10-PCS; principal; 2016-11-11 04:00)
PROC: 0JQ80ZZ Repair Abdomen Subcutaneous Tissue and Fascia, Open Approach (ICD-10-PCS; principal; 2016-11-11 04:00)
PROC: 0W3F0ZZ Control Bleeding in Abdominal Wall, Open Approach (ICD-10-PCS; 2016-11-15)
PROC: 0KBS0ZZ Excision of Right Lower Leg Muscle, Open Approach (ICD-10-PCS; 2016-11-19)
PROC: 0QSG05Z Reposition Right Tibia with External Fixation Device, Open Approach (ICD-10-PCS; 2016-11-19)
PROC: 0QSG04Z Reposition Right Tibia with Internal Fixation Device, Open Approach (ICD-10-PCS; 2016-11-19)
DX: S82.14 Bicondylar fracture of tibia (principal); S82.401A Unspecified fracture of shaft of right fibula, initial encounter for closed fracture; S32.301A Unspecified fracture of right ilium, initial encounter for closed fracture; S31.133A Puncture wound of abdominal wall without foreign body, right lower quadrant without penetration into peritoneal cavity, initial encounter; S31.112A Laceration without foreign body of abdominal wall, epigastric region without penetration into peritoneal cavity, initial encounter; S00.93XA Contusion of unspecified part of head, initial encounter; S36.113A Laceration of liver, unspecified degree, initial encounter; S01.81XA Laceration without foreign body of other part of head, initial encounter; S91.311A Laceration without foreign body, right foot, initial encounter; S40.811A Abrasion of right upper arm, initial encounter; S40.812A Abrasion of left upper arm, initial encounter; K21.9 Gastro-esophageal reflux disease without esophagitis; V03.10XA Pedestrian on foot injured in collision with car, pick-up truck or van in traffic accident, initial encounter; Y92.410 Unspecified street and highway as the place of occurrence of the external cause
CPT/HCPCS: 80305; 92507-GN; 92523-GN; 96365; 97110-GP; 97116-GP; 97162-GP; 97165-GO; 97168-GO; 97530-GO; 97530-GP; 97535-GO; C1713; C1762; C1769; G0480; J0330; J0690; J1100; J1170; J1650; J1885; J2060; J2250; J2405; J2704; J3010; J3230; L1832; P9041; Q9967

== ENCOUNTER 2017-07-08 04:48 | Emergency (ER) | payer MEDICAID ==
[2017-07-08] MEDS ORDERED: KETOROLAC 30 MG/1 ML SDV IM ONE (05:05)
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
[2017-07-08 05:42] VITALS: TEMP 98.1
[2017-07-08] MEDS ORDERED: OXYCODONE/APAP 5/325MG PREPACK#4 BTL TAKEHOME ONE (05:50)
[2017-07-08 06:08] VITALS: BP 157/94; PULSE 98; RESP 22; O2SAT 95
== END 2017-07-08 06:08 | disposition home or self-care (01) ==
DX: S22.31XA Fracture of one rib, right side, initial encounter for closed fracture (principal); J45.909 Unspecified asthma, uncomplicated; F17.200 Nicotine dependence, unspecified, uncomplicated; V86.59XA Driver of other special all-terrain or other off-road motor vehicle injured in nontraffic accident, initial encounter; Y99.8 Other external cause status; Y93.89 Activity, other specified
CPT/HCPCS: J1885

== ENCOUNTER → 2018-09-24 | Outpatient (CLI) | payer OTHER, MEDICAID | LOC: EMCIMAGING 07:10 | PROVIDERS: ATTEND Physician Assistant | DX: S83.231D Complex tear of medial meniscus, current injury, right knee, subsequent encounter (principal) | CPT/HCPCS: 7372PN ==